=== PATIENT | female | born 1960 | race Caucasian/White ===

== ENCOUNTER 2020-07-29 17:21 | Emergency (ER) | payer OTHER ==
[2020-07-29 19:00] LABS: HEMOGLOBIN 14.5 gm/dl (12.3-15.3); RED BLOOD COUNT 4.56 M/UL (4.00-5.10); WHITE BLOOD COUNT 11.8 K/UL (4.5-11.0)
[2020-07-29 19:18] LABS: BUN/CREATININE RATIO 18 (0-10)
[2020-07-29] MEDS ORDERED: ZOFRAN4 MG PO (21:25)
[2020-07-29] MEDS ORDERED: OMNICEF 300 MG300 MG PO (21:25)
[2020-07-30 15:11] LABS: ACINETOBACTER BAUMANNII Not Detected (Negative); CANDIDA ALBICANS Not Detected (Negative); CANDIDA KRUSEI Not Detected (Negative); CANDIDA TROPICALIS Not Detected (Negative); ENTEROCOCCUS Not Detected (Negative); HAEMOPHILUS INFLUENZAE Not Detected (Negative); KLEBSIELLA OXYTOCA Not Detected (Negative); KLEBSIELLA PNEUMONIAE Not Detected (Negative); KPC-CARBAPENEM-RESISTANCE GENE Not Detected (Negative); PROTEUS Not Detected (Negative); PSEUDOMONAS AERUGINOSA Not Detected (Negative); SERRATIA MARCESANS Not Detected (Negative); STAPHYLOCOCCUS Not Detected (Negative); STAPHYLOCOCCUS AUREUS Not Detected (Negative); STREP AGALACTIAE (GROUP B) Not Detected (Negative); STREP PYOGENES (GROUP A) Not Detected (Negative); STREPTOCOCCUS Not Detected (Negative); mecA (METHICILLIN RESIST GENE Not Detected (Negative); vanA/B (VANCOMYCIN RESIST GENE Not Detected (Negative)
[2020-07-30 16:34] LABS: ESCHERICHIA COLI DETECTED (Negative)
== END 2020-07-29 22:22 | disposition home or self-care (01) ==
LOC: ER1 17:21
PROVIDERS: Physician Assistant; Preventive Medicine Occupational Medicine
DX: N12 Tubulo-interstitial nephritis, not specified as acute or chronic (principal); R19.7 Diarrhea, unspecified; E11.9 Type 2 diabetes mellitus without complications; F17.200 Nicotine dependence, unspecified, uncomplicated; Z90.49 Acquired absence of other specified parts of digestive tract; Z90.710 Acquired absence of both cervix and uterus
CPT/HCPCS: 36415; 71045; 80053; 81001; 83605; 83690; 85025; 87040; 87077; 87086; 87150; 87186; 96374; 96375; 99284; J0696; J2270

== ENCOUNTER 2020-08-19 17:50 | Emergency (ER) | payer OTHER ==
[~2020-08-19 17:50] MED LIST: OMNICEF 300 MG300 MG PO; ZOFRAN4 MG PO
[2020-08-19 21:19] LABS: HEMOGLOBIN 14.9 gm/dl (12.3-15.3); RED BLOOD COUNT 4.62 M/UL (4.00-5.10)
[2020-08-19 21:33] LABS: BUN/CREATININE RATIO 21 (0-10)
== END 2020-08-19 22:06 | disposition home or self-care (01) ==
LOC: ER1 17:50
PROVIDERS: Family Medicine
DX: R10.9 Unspecified abdominal pain (principal); E11.9 Type 2 diabetes mellitus without complications; E78.00 Pure hypercholesterolemia, unspecified; E78.5 Hyperlipidemia, unspecified; Z79.899 Other long term (current) drug therapy; F17.210 Nicotine dependence, cigarettes, uncomplicated
CPT/HCPCS: 80053; 81001; 83605; 85025; 87040; 87086; 99284